=== PATIENT | male | born 2000 ===

== ENCOUNTER 2025-10-15 07:00 | Day surgery (SDC) | payer OTHER ==
[~2025-10-15 07:00] MED LIST: CEFTRIAXONE SODIUM 2,000 MG VIAL ONE; METRONIDAZOLE/SODIUM CHLORIDE 500 MG/100 ML PIGGYBACK IV ONE
[2025-10-15] MEDS ORDERED: POVIDONE-IODINE 118 ML BOTT TOP ONE (07:26)
[2025-10-15] MEDS ORDERED: BUPIVACAINE HCL/MPF 0.5% 30ML VIAL ONE (07:26)
[2025-10-15] MEDS ORDERED: DIBUCAINE 30 GM TUBE ONE (07:26)
[2025-10-15] MEDS ORDERED: LIDOCAINE HCL 1%/EPINEPHRINE 20ML VIAL IJ ONE (07:26)
[2025-10-15] MEDS ORDERED: HEMOSTATIC MATRIX 1 KIT KIT TOP ONE (07:26)
[2025-10-15] MEDS ORDERED: PERCOCET 5-3251 EACH PO (08:55)
[2025-10-15] MEDS ORDERED: RECTICARE30 GM TOP (08:55)
== END 2025-10-15 14:00 | disposition home or self-care (01) ==
LOC: CIR.AMB 07:00
PROVIDERS: ATTEND Surgery
DX: K60.1 Chronic anal fissure (principal); K62.4 Stenosis of anus and rectum; K62.5 Hemorrhage of anus and rectum